=== PATIENT | female | born 1945 | race Caucasian/White ===

== ENCOUNTER 2017-07-26 17:15 | Emergency (ER) | payer MEDICARE, OTHER ==
[~2017-07-26] VITALS: Ht 165.1 cm; Wt 104.8 kg
[2017-07-26] MEDS ORDERED: GABA300C10 PO (18:41)
[2017-07-26] MEDS ORDERED: ESOM40CA PO (18:41)
[2017-07-26] MEDS ORDERED: LISI30TA4 PO (18:41)
[2017-07-26] MEDS ORDERED: ATOR20TA PO (18:41)
[2017-07-26] MEDS ORDERED: VERA120T5 PO (18:41)
[2017-07-26] MEDS ORDERED: AMIT50TA PO (18:41)
[2017-07-26] MEDS ORDERED: METO50TA82 PO (18:41)
[2017-07-26] MEDS ORDERED: MORPHINE SULFATE 4 MG/ML, 1ML ONE (18:46)
[2017-07-26] MEDS ORDERED: ONDANSETRON 2MG/ML, 2ML ONE (18:47)
[2017-07-26] MEDS ORDERED: SODIUM CHLORIDE 0.9% 1,000ML IVBOLUS ONE (19:00)
[2017-07-26] MEDS ORDERED: OMNIPAQUE 350 MG/ML, 100ML BOTTLE ONE (19:00)
[2017-07-26] MEDS ORDERED: MORPHINE SULFATE 4 MG/ML, 1ML IVPush PRN (19:00)
[2017-07-26] MEDS ORDERED: ONDANSETRON 2MG/ML, 2ML IVPush ONE (19:00)
[2017-07-26] MEDS ORDERED: SODIUM CHLORIDE FLUSH 10ML SYR IVF ONE (19:00)
[2017-07-26 19:15] LABS: HEMATOCRIT 39.8 % (34.6-47.8); HEMOGLOBIN 13.2 g/dL (11.7-16.4); WHITE BLOOD COUNT 10.7 x10^3/uL (3.4-10)
[2017-07-26 19:26] LABS: ASPARTATE AMINO TRANSFERASE 19 U/L (15-37); BLOOD UREA NITROGEN 11 mg/dL (7-18)
[2017-07-26] MEDS ORDERED: ACETAMINOPHEN 325 MG TABLET PO ONE (22:00)
[2017-07-26] MEDS ORDERED: SULFAMETH./TRIMETHOPRIM DS 800MG/160MG TABLET PO ONE (22:00)
[2017-07-26] MEDS ORDERED: PHENAZOPYRIDINE 200 MG TABLET PO ONE (22:00)
[2017-07-26] MEDS ORDERED: PHENAZOPYRIDINE 200 MG TABLET ONE (22:07)
[2017-07-26] MEDS ORDERED: ACETAMINOPHEN 325 MG TABLET ONE (22:07)
[2017-07-26] MEDS ORDERED: SULFAMETH./TRIMETHOPRIM DS 800MG/160MG TABLET ONE (22:07)
[2017-07-26 22:20] VITALS: BP 144/98
== END 2017-07-26 22:34 | disposition home or self-care (01) ==
LOC: ED 21:56
DX: N30.90 Cystitis, unspecified without hematuria (principal); G62.9 Polyneuropathy, unspecified; I10 Essential (primary) hypertension; Z79.82 Long term (current) use of aspirin; Z88.7 Allergy status to serum and vaccine
CPT/HCPCS: 36415; 74177; 80053; 81001; 83880; 85025; 87086; 93005; 93970; 96361; 96374; 96375; 99285; J2405; J7030; Q9967